=== PATIENT | female | born 1970 | race Caucasian/White ===

== ENCOUNTER 2024-04-26 14:52 | Emergency (ER) | payer BC ==
[2024-04-26] MEDS: Ketorolac 30 MG/ML SDV IM ONE (18:00)
[2024-04-26] MEDS: Lidocaine 4% 1 each Patch TOP STA (18:02)
[2024-04-26] MEDS: Orphenadrine 60 MG/2 ML Inj IM ONE (18:02)
== END 2024-04-26 18:37 | disposition home or self-care (01) ==
LOC: MW.ED 14:52
DX: M54.31 Sciatica, right side (principal); I10 Essential (primary) hypertension; K21.9 Gastro-esophageal reflux disease without esophagitis; E78.00 Pure hypercholesterolemia, unspecified; E66.9 Obesity, unspecified; Z75.8 Other problems related to medical facilities and other health care; Z79.899 Other long term (current) drug therapy; Z68.42 Body mass index [BMI] 45.0-49.9, adult
CPT/HCPCS: 96372; 99283; A9270; J1885; J2360